=== PATIENT | female | born 1960 | race Two or more races ===

== ENCOUNTER → 2016-09-28 | Outpatient (CLI) | payer OTHER ==
[~2016-09-28] MED LIST: ASPI-664 PO; HYDR-3498 PO; IBUP-1542 PO; LISI-313 PO; NAPR-260 PO
== END | disposition home or self-care (01) ==
LOC: HKI 08:47
PROVIDERS: ATTEND Orthopaedic Surgery
DX: Z47.89 Encounter for other orthopedic aftercare (principal); Z87.898 Personal history of other specified conditions
CPT/HCPCS: G0463